=== PATIENT | female | born 1980 | race Caucasian/White ===

== ENCOUNTER 2018-04-27 12:52 | Emergency (ER) | payer OTHER ==
[~2018-04-27] VITALS: Ht 167.6 cm; Wt 72.0 kg
[~2018-04-27 12:52] MED LIST: BIRTH CONTROL PILL; HYDR1TAB PO
[2018-04-27 12:56] VITALS: BP 111/64
[2018-04-27] MEDS ORDERED: PRED5TAB PO (13:08)
[2018-04-27] MEDS ORDERED: triamcinolone acetonide 40mg/ml inj IM ONE (13:20)
[2018-04-28] MEDS ORDERED: PRED20TA PO (08:56)
== END 2018-04-27 13:45 | disposition home or self-care (01) ==
LOC: ER 12:53
DX: L50.0 Allergic urticaria (principal); Z85.89 Personal history of malignant neoplasm of other organs and systems; Z88.8 Allergy status to other drugs, medicaments and biological substances; Z79.899 Other long term (current) drug therapy
CPT/HCPCS: 96372; 99283; J3301

== ENCOUNTER 2018-04-28 08:08 | Emergency (ER) | payer OTHER ==
[~2018-04-28] VITALS: Ht 167.6 cm; Wt 72.8 kg
[~2018-04-28 08:08] MED LIST changes: -BIRTH CONTROL PILL; -HYDR1TAB PO; +PRED5TAB PO
[2018-04-28] MEDS ORDERED: dexamethasone sod phosphate 10mg/ml inj IM STA (08:53)
[2018-04-28] MEDS ORDERED: predniSONE 20 mg tablet PO ONE (08:55)
[2018-04-28] MEDS ORDERED: PRED20TA PO (08:56)
[2018-04-28 09:37] VITALS: BP 121/75
== END 2018-04-28 09:38 | disposition home or self-care (01) ==
LOC: ER 08:09
DX: L50.9 Urticaria, unspecified (principal); F17.210 Nicotine dependence, cigarettes, uncomplicated; Z85.9 Personal history of malignant neoplasm, unspecified; Z88.8 Allergy status to other drugs, medicaments and biological substances; Z79.899 Other long term (current) drug therapy
CPT/HCPCS: 96372; 99283; J1100; J7512

== ENCOUNTER 2023-02-05 11:00 | Emergency (ER) | payer OTHER ==
[~2023-02-05] VITALS: Ht 167.6 cm; Wt 73.4 kg
[~2023-02-05 11:00] MED LIST changes: +DIPH25CA83 PO
[2023-02-05 11:47] LABS: CLARITY,URINE SLIGHTLY CLOUDY (Clear); GLUCOSE, URINE NEGATIVE (Neg); KETONES,URINE NEGATIVE (Neg); LEUKOCYTE ESTERASE ,URINE LARGE (Neg); NITRITES, URINE NEGATIVE (Neg); OCCULT BLOOD,URINE MODERATE (Neg); PROTEIN,URINE TRACE mg/dl (Neg); URINE HCG NEGATIVE (NEG); UROBILINOGEN,URINE 0.2 E.U/dL (0.2-1.0)
[2023-02-05 11:48] LABS: COLOR,URINE STRAW (Yellow); UA COLLECTION TYPE CLN CATCH MIDSTREAM
[2023-02-05 12:00] LABS: BACTERIA,URINE 1+ /HPF (Neg); MUCUS STRANDS MODERATE /LPF (Neg); RBC,URINE 0-2 /HPF (0-2); SQUAMOUS EPITHELIAL CELL,UR FEW /LPF (FEW); WBC,URINE 50-100 /HPF (0-4)
[2023-02-05 12:01] LABS: WBC CLUMPS,URINE MODERATE /HPF (NEGATIVE)
[2023-02-05 12:18] LABS: ALANINE AMINOTRANSFERASE 22 U/L (12-78); ALBUMIN 3.8 G/DL (3.4-5.0); ALBUMIN/GLOBULIN RATIO 1.1 (1.1-1.5); ALKALINE PHOSPHATASE 71 IU/L (46-116); ANION GAP 8 (8-16); ASPARTATE AMINO TRANSFERASE 17 U/L (10-37); BILIRUBIN,TOTAL 0.4 MG/DL (0.1-1.0); BLOOD UREA NITROGEN 10 MG/DL (7-18); BUN/CREATININE RATIO 12.3 (10.0-20.0); CALCIUM 9.1 MG/DL (8.5-10.1); CHLORIDE 103 MMOL/L (99-107); CREATININE 0.81 MG/DL (0.40-0.90); GLUCOSE 113 MG/DL (70-104); LIPASE < 50 U/L (73-393); POTASSIUM 3.9 MMOL/L (3.5-5.1); SODIUM 136 MMOL/L (135-145); TOTAL CARBON DIOXIDE 25.5 MMOL/L (24-32); TOTAL PROTEIN 7.2 G/DL (6.4-8.2); eGFR 78 ML/MIN
[2023-02-05 12:27] LABS: BASOPHILS % (AUTO) 0.3 % (0-1); EOSINOPHILS # (AUTO) 0.1 X10'3 (0-0.9); EOSINOPHILS % (AUTO) 0.7 % (0-6); HEMATOCRIT 41.1 % (35.0-45.0); HEMOGLOBIN 13.8 g/dl (12.0-16.0); LYMPHOCYTES # (AUTO) 1.8 X10'3 (1.1-4.8); LYMPHOCYTES % (AUTO) 12.6 % (21-51); MEAN CORPUSCULAR HEMOGLOBIN 30.5 PG (27.0-31.0); MEAN CORPUSCULAR HGB CONC 33.7 g/dL (33.0-36.5); MEAN CORPUSCULAR VOLUME 90.4 FL (78-98); MEAN PLATELET VOLUME 8.3 FL (7.4-10.4); MONOCYTES # (AUTO) 0.6 X10'3 (0-0.9); MONOCYTES % (AUTO) 4.3 % (2-12); NEUTROPHILS # (AUTO) 11.7 X10'3 (1.8-7.7); NEUTROPHILS % (AUTO) 82.1 % (42-75); PLATELET COUNT 329 X10'3 (140-440); RED BLOOD COUNT 4.54 X10'6 (4.20-5.60); RED CELL DISTRIBUTION WIDTH 13.4 % (11.5-14.5); WHITE BLOOD COUNT 14.3 X10'3 (4.5-11.0)
[2023-02-05] MEDS ORDERED: SULF1TAB49 PO (12:58)
[2023-02-05 13:21] VITALS: BP 124/81
== END 2023-02-05 13:23 | disposition home or self-care (01) ==
LOC: ER 11:01
DX: N39.0 Urinary tract infection, site not specified (principal); Z87.81 Personal history of (healed) traumatic fracture; Z88.8 Allergy status to other drugs, medicaments and biological substances; Z88.5 Allergy status to narcotic agent; Z79.899 Other long term (current) drug therapy
CPT/HCPCS: 36415; 80053; 81001; 81025; 83690; 85025; 87077; 87088; 87186; 99283